=== PATIENT | female | born 1995 | race Caucasian/White ===

== ENCOUNTER 2017-04-05 21:40 | Emergency (ER) | payer MEDICAID ==
[~2017-04-05] VITALS: Ht 157.5 cm; Wt 74.3 kg
[~2017-04-05 21:40] MED LIST: AZIT250T PO; CLIN-80 PO; CYCL-1 PO; DIAZ5TAB PO; GUAI120015 PO; HYDR-569 PO; IBUP-1986 PO; METH-360 PO; NITR100C PO; NO HOME MEDS; ONDA4TAB6 PO
[2017-04-05] MEDS ORDERED: NAPR-1144 PO (22:00)
[2017-04-05] MEDS ORDERED: CYCL-1 PO (22:00)
[2017-04-05 22:08] VITALS: BP 139/92
== END 2017-04-05 22:09 | disposition home or self-care (01) ==
LOC: ER 21:41
DX: M54.5 Low back pain (principal); G89.29 Other chronic pain; J45.909 Unspecified asthma, uncomplicated; D16.6 Benign neoplasm of vertebral column; F17.210 Nicotine dependence, cigarettes, uncomplicated; Z88.6 Allergy status to analgesic agent; Z79.899 Other long term (current) drug therapy; Z90.49 Acquired absence of other specified parts of digestive tract
CPT/HCPCS: 99283

== ENCOUNTER 2017-05-26 21:23 | Emergency (ER) | payer MEDICAID ==
[~2017-05-26] VITALS: Ht 157.5 cm; Wt 76.1 kg
[~2017-05-26 21:23] MED LIST changes: +NAPR-1144 PO
[2017-05-26 22:16] VITALS: BP 132/75
[2017-05-26] MEDS ORDERED: HYDR-569 PO (22:30)
== END 2017-05-26 22:30 | disposition home or self-care (01) ==
LOC: ER 21:24
DX: N64.4 Mastodynia (principal); N63.20 Unspecified lump in the left breast, unspecified quadrant; J45.909 Unspecified asthma, uncomplicated; G89.29 Other chronic pain; Z90.49 Acquired absence of other specified parts of digestive tract; Z98.890 Other specified postprocedural states; Z88.5 Allergy status to narcotic agent; Z79.899 Other long term (current) drug therapy
CPT/HCPCS: 99283

== ENCOUNTER 2018-03-22 19:57 | Emergency (ER) | payer MEDICAID ==
[~2018-03-22] VITALS: Ht 157.5 cm; Wt 58.2 kg
[~2018-03-22 19:57] MED LIST changes: -CLIN-80 PO; +CLIN300C85 PO; +HYDR-4383 PO; -HYDR-569 PO
[2018-03-22 20:05] VITALS: BP 123/76
[2018-03-22 20:53] LABS: ALANINE AMINOTRANSFERASE 23 U/L (12-78); ALBUMIN/GLOBULIN RATIO 0.7 (1.1-1.5); ALKALINE PHOSPHATASE 100 IU/L (46-116); ANION GAP 9 (8-16); ASPARTATE AMINO TRANSFERASE 11 U/L (10-37); BILIRUBIN,TOTAL 0.3 MG/DL (0.1-1.0); BLOOD UREA NITROGEN 6 MG/DL (7-18); BUN/CREATININE RATIO 9.2 (6.6-38.0); CALCIUM 8.7 MG/DL (8.5-10.1); CHLORIDE 100 MMOL/L (99-107); CREATININE 0.65 MG/DL (0.40-0.90); GLUCOSE 81 MG/DL (70-104); LIPASE 120 U/L (73-393); POTASSIUM 3.5 MMOL/L (3.5-5.1); SODIUM 141 MMOL/L (135-145); TOTAL CARBON DIOXIDE 31.8 MMOL/L (24-32); TOTAL PROTEIN 7.4 G/DL (6.4-8.2); eGFR > 90 ML/MIN
[2018-03-22 20:57] LABS: BASOPHILS % (AUTO) 0.2 % (0-1); EOSINOPHILS # (AUTO) 0.1 X10'3 (0-0.9); EOSINOPHILS % (AUTO) 2.3 % (0-6); HEMATOCRIT 36.2 % (35.0-45.0); HEMOGLOBIN 12.1 g/dl (12.0-16.0); LYMPHOCYTES # (AUTO) 1.3 X10'3 (1.1-4.8); LYMPHOCYTES % (AUTO) 28.6 % (21-51); MEAN CORPUSCULAR HEMOGLOBIN 29.7 PG (27.0-31.0); MEAN CORPUSCULAR HGB CONC 33.3 % (33.0-36.5); MEAN CORPUSCULAR VOLUME 89.2 FL (78-98); MEAN PLATELET VOLUME 7.9 FL (7.4-10.4); MONOCYTES # (AUTO) 0.3 X10'3 (0-0.9); MONOCYTES % (AUTO) 7.3 % (2-12); NEUTROPHILS # (AUTO) 2.9 X10'3 (1.8-7.7); NEUTROPHILS % (AUTO) 61.6 % (42-75); PLATELET COUNT 317 X10'3 (140-440); PROTHROMBIN TIME 10.2 SECONDS (9.0-12.0); RED BLOOD COUNT 4.06 X10'6 (4.20-5.60); RED CELL DISTRIBUTION WIDTH 12.6 % (11.5-14.5); WHITE BLOOD COUNT 4.6 X10'3 (4.5-11.0)
[2018-03-22 21:14] LABS: URINE HCG NEGATIVE (NEG)
[2018-03-22 21:24] LABS: CLARITY,URINE SLIGHTLY CLOUDY (Clear); COLOR,URINE YELLOW (Yellow); UA COLLECTION TYPE CLN CATCH MIDSTREAM
[2018-03-22 21:25] LABS: GLUCOSE, URINE NEGATIVE (Neg); KETONES,URINE NEGATIVE (Neg); LEUKOCYTE ESTERASE ,URINE LARGE (Neg); NITRITES, URINE NEGATIVE (Neg); OCCULT BLOOD,URINE TRACE-LYSED (Neg); PH,URINE 6.5 (4.8-8.0); PROTEIN,URINE NEGATIVE (Neg)
[2018-03-22 21:26] LABS: BACTERIA,URINE FEW /HPF (Neg); RBC,URINE 0-2 /HPF (0-2); SQUAMOUS EPITHELIAL CELL,UR FEW /LPF (FEW)
[2018-03-22 21:27] LABS: MUCUS STRANDS MODERATE /LPF (Neg); TRICHOMONAS,URINE FEW /HPF (NEGATIVE); WBC,URINE 30-50 /HPF (0-4)
[2018-03-22] MEDS ORDERED: azithromycin 250mg tablet PO ONE (21:30)
[2018-03-22] MEDS ORDERED: CefTRIAXone 1000mg IM Kit (w/lidocaine diluent) IM ONE (21:30)
[2018-03-22] MEDS ORDERED: NITR100C6 PO (22:04)
[2018-03-22] MEDS ORDERED: POLY17PO10 PO (22:04)
[2018-03-22] MEDS ORDERED: CIPR-230 PO (22:05)
== END 2018-03-24 21:30 | disposition home or self-care (01) ==
LOC: ER 19:57
DX: N39.0 Urinary tract infection, site not specified (principal); J45.909 Unspecified asthma, uncomplicated; G89.29 Other chronic pain; Z90.49 Acquired absence of other specified parts of digestive tract; Z98.890 Other specified postprocedural states; Z88.5 Allergy status to narcotic agent; Z79.2 Long term (current) use of antibiotics; Z79.899 Other long term (current) drug therapy
CPT/HCPCS: 36415; 74018; 80053; 81001; 81025; 83690; 85025; 85610; 87088; 96372; 99284; J0696

== ENCOUNTER 2019-06-16 11:07 | Emergency (ER) | payer MEDICAID ==
[~2019-06-16] VITALS: Ht 157.5 cm; Wt 56.4 kg
[~2019-06-16 11:07] MED LIST changes: +CLIN-97 PO; -CLIN300C85 PO; +NITR100C6 PO
[2019-06-16] MEDS ORDERED: ketorolac tromethamine 15mg/ml inj. IV ONE (11:15)
[2019-06-16] MEDS ORDERED: ondansetron/PF 4mg/2ml inj IV ONE (11:15)
[2019-06-16] MEDS ORDERED: normal saline 1000ML IV soln IVB ONE (11:15)
[2019-06-16] MEDS ORDERED: oxyCODONE/APAP 5-325mg tablet PO ONE (11:25)
[2019-06-16 11:29] LABS: BASOPHILS % (AUTO) 0.3 % (0-1); EOSINOPHILS % (AUTO) 0.3 % (0-6); HEMATOCRIT 40.5 % (35.0-45.0); HEMOGLOBIN 13.5 g/dl (12.0-16.0); LYMPHOCYTES # (AUTO) 1.3 X10'3 (1.1-4.8); LYMPHOCYTES % (AUTO) 17.7 % (21-51); MEAN CORPUSCULAR HEMOGLOBIN 28.9 PG (27.0-31.0); MEAN CORPUSCULAR HGB CONC 33.4 g/dL (33.0-36.5); MEAN CORPUSCULAR VOLUME 86.5 FL (78-98); MEAN PLATELET VOLUME 7.8 FL (7.4-10.4); MONOCYTES # (AUTO) 0.5 X10'3 (0-0.9); MONOCYTES % (AUTO) 6.6 % (2-12); NEUTROPHILS # (AUTO) 5.5 X10'3 (1.8-7.7); NEUTROPHILS % (AUTO) 75.1 % (42-75); PLATELET COUNT 317 X10'3 (140-440); RED BLOOD COUNT 4.68 X10'6 (4.20-5.60); RED CELL DISTRIBUTION WIDTH 14.6 % (11.5-14.5); WHITE BLOOD COUNT 7.3 X10'3 (4.5-11.0)
[2019-06-16 11:56] LABS: ALANINE AMINOTRANSFERASE 14 U/L (12-78); ALBUMIN 3.8 G/DL (3.4-5.0); ALBUMIN/GLOBULIN RATIO 0.9 (1.1-1.5); ALKALINE PHOSPHATASE 88 IU/L (46-116); ANION GAP 9 (8-16); ASPARTATE AMINO TRANSFERASE 17 U/L (10-37); BILIRUBIN,TOTAL 0.5 MG/DL (0.1-1.0); BLOOD UREA NITROGEN 9 MG/DL (7-18); BUN/CREATININE RATIO 9.9 (6.6-38.0); CALCIUM 9.4 MG/DL (8.5-10.1); CHLORIDE 105 MMOL/L (99-107); CREATININE 0.91 MG/DL (0.40-0.90); GLUCOSE 236 MG/DL (70-104); LIPASE 77 U/L (73-393); POTASSIUM 4.4 MMOL/L (3.5-5.1); SODIUM 140 MMOL/L (135-145); TOTAL CARBON DIOXIDE 25.9 MMOL/L (24-32); TOTAL PROTEIN 7.9 G/DL (6.4-8.2); eGFR 75 ML/MIN
[2019-06-16 12:16] LABS: URINE HCG NEGATIVE (NEG)
[2019-06-16 12:19] LABS: CLARITY,URINE CLOUDY (Clear); COLOR,URINE AMBER (Yellow); GLUCOSE, URINE 100 mg/dl (Neg); KETONES,URINE 40 mg/dl (Neg); LEUKOCYTE ESTERASE ,URINE SMALL (Neg); NITRITES, URINE NEGATIVE (Neg); OCCULT BLOOD,URINE LARGE (Neg); PROTEIN,URINE 30 mg/dl (Neg)
[2019-06-16 12:26] LABS: UA COLLECTION TYPE CLN CATCH MIDSTREAM
[2019-06-16 12:30] LABS: BACTERIA,URINE 4+ /HPF (Neg); MUCUS STRANDS MANY /LPF (Neg); RBC,URINE TNTC /HPF (0-2)
[2019-06-16 12:31] LABS: SQUAMOUS EPITHELIAL CELL,UR MANY /LPF (FEW)
[2019-06-16] MEDS ORDERED: DOCU-148 PO (13:15)
[2019-06-16] MEDS ORDERED: ONDA4TAB6 PO (13:15)
[2019-06-16] MEDS ORDERED: HYDR-3965 PO (13:15)
[2019-06-16] MEDS ORDERED: CEPH500C5 PO (14:00)
[2019-06-16 14:12] VITALS: BP 112/61
[2019-06-16 14:16] LABS: CLARITY,URINE CLEAR (Clear); COLOR,URINE STRAW (Yellow); GLUCOSE, URINE NEGATIVE (Neg); KETONES,URINE NEGATIVE (Neg); LEUKOCYTE ESTERASE ,URINE TRACE (Neg); NITRITES, URINE NEGATIVE (Neg); OCCULT BLOOD,URINE LARGE (Neg); PH,URINE 6.5 (4.8-8.0); PROTEIN,URINE NEGATIVE (Neg); UROBILINOGEN,URINE 0.2 E.U/dL (0.2-1.0)
[2019-06-16 14:17] LABS: UA COLLECTION TYPE CLN CATCH MIDSTREAM
[2019-06-16 14:22] LABS: SQUAMOUS EPITHELIAL CELL,UR FEW /LPF (FEW); TRANSITIONAL EPI CELLS,URINE FEW /HPF
[2019-06-16 14:24] LABS: BACTERIA,URINE FEW /HPF (Neg); MUCUS STRANDS NONE SEEN /LPF (Neg); RBC,URINE 50-100 /HPF (0-2); WBC,URINE 0-4 /HPF (0-4)
== END 2019-06-16 14:55 | disposition home or self-care (01) ==
LOC: ER 11:07
DX: N20.0 Calculus of kidney (principal); N39.0 Urinary tract infection, site not specified; R11.2 Nausea with vomiting, unspecified; J45.909 Unspecified asthma, uncomplicated; G89.29 Other chronic pain; F17.200 Nicotine dependence, unspecified, uncomplicated; Z59.0 Homelessness; Z90.49 Acquired absence of other specified parts of digestive tract; Z98.890 Other specified postprocedural states; Z88.5 Allergy status to narcotic agent
CPT/HCPCS: 36415; 76700; 80053; 81001; 81025; 83690; 85025; 87077; 87088; 87186; 96361; 96374; 96375; 99284; J1885; J2405; J7030

== ENCOUNTER 2021-05-25 09:39 | Emergency (ER) | payer MEDICAID ==
[~2021-05-25] VITALS: Ht 157.5 cm; Wt 55.0 kg
[2021-05-25 09:39] VITALS: BP 126/98
[~2021-05-25 09:39] MED LIST changes: +DOCU-148 PO
[2021-05-25] MEDS ORDERED: piperacillin/tazo 3.375gm/50ml 50 ML IV ONE (09:45)
[2021-05-25] MEDS ORDERED: normal saline 1000ML IV soln IV ONE (09:45)
[2021-05-25] MEDS ORDERED: vancomycin/NS 1 GM ADD-VANTAGE 250 ML IV ONE (09:45)
[2021-05-25 10:12] LABS: CLARITY,URINE CLEAR (Clear); COLOR,URINE YELLOW (Yellow); GLUCOSE, URINE NEGATIVE (Neg); KETONES,URINE NEGATIVE (Neg); LEUKOCYTE ESTERASE ,URINE NEGATIVE (Neg); NITRITES, URINE NEGATIVE (Neg); OCCULT BLOOD,URINE NEGATIVE (Neg); PH,URINE 6.5 (4.8-8.0); PROTEIN,URINE TRACE mg/dl (Neg); UROBILINOGEN,URINE 0.2 E.U/dL (0.2-1.0)
[2021-05-25 10:13] LABS: URINE HCG NEGATIVE (NEG)
[2021-05-25 10:23] LABS: BASOPHILS % (AUTO) 0.3 % (0-1); EOSINOPHILS % (AUTO) 0.9 % (0-6); HEMATOCRIT 38.8 % (35.0-45.0); HEMOGLOBIN 12.6 g/dl (12.0-16.0); LYMPHOCYTES # (AUTO) 0.9 X10'3 (1.1-4.8); LYMPHOCYTES % (AUTO) 18.8 % (21-51); MEAN CORPUSCULAR HEMOGLOBIN 26.3 PG (27.0-31.0); MEAN CORPUSCULAR HGB CONC 32.5 g/dL (33.0-36.5); MEAN CORPUSCULAR VOLUME 80.9 FL (78-98); MEAN PLATELET VOLUME 8.2 FL (7.4-10.4); MONOCYTES # (AUTO) 0.5 X10'3 (0-0.9); MONOCYTES % (AUTO) 10.5 % (2-12); NEUTROPHILS # (AUTO) 3.4 X10'3 (1.8-7.7); NEUTROPHILS % (AUTO) 69.5 % (42-75); PLATELET COUNT 358 X10'3 (140-440); RED BLOOD COUNT 4.79 X10'6 (4.20-5.60); RED CELL DISTRIBUTION WIDTH 16.1 % (11.5-14.5); WHITE BLOOD COUNT 4.9 X10'3 (4.5-11.0)
[2021-05-25 10:27] LABS: URINE AMPHETAMINE SCREEN NEGATIVE (Neg); URINE BARBITUATE SCREEN NEGATIVE (Neg); URINE BENZODIAZEPINES SCREEN NEGATIVE (Neg); URINE CANNABINOID SCREEN NEGATIVE (Neg); URINE COCAINE SCREEN NEGATIVE (Neg); URINE METHADONE SCREEN NEGATIVE (Neg); URINE OPIATE SCREEN NEGATIVE (Neg); URINE PHENCYCLIDINE SCREEN NEGATIVE (Neg)
[2021-05-25 10:37] LABS: ALANINE AMINOTRANSFERASE 28 U/L (12-78); ALBUMIN 3.7 G/DL (3.4-5.0); ALBUMIN/GLOBULIN RATIO 0.8 (1.1-1.5); ALKALINE PHOSPHATASE 101 IU/L (46-116); ANION GAP 9 (8-16); ASPARTATE AMINO TRANSFERASE 15 U/L (10-37); BILIRUBIN,TOTAL 0.2 MG/DL (0.1-1.0); BLOOD UREA NITROGEN 21 MG/DL (7-18); BUN/CREATININE RATIO 29.6 (6.6-38.0); CALCIUM 8.9 MG/DL (8.5-10.1); CHLORIDE 106 MMOL/L (99-107); CREATININE 0.71 MG/DL (0.40-0.90); GLUCOSE 97 MG/DL (70-104); POTASSIUM 4.4 MMOL/L (3.5-5.1); SODIUM 139 MMOL/L (135-145); TOTAL CARBON DIOXIDE 23.7 MMOL/L (24-32); TOTAL PROTEIN 8.1 G/DL (6.4-8.2); eGFR > 90 ML/MIN
[2021-05-25] MEDS ORDERED: NO HOME MEDS (10:50)
[2021-05-25 10:55] LABS: UA COLLECTION TYPE CLN CATCH MIDSTREAM
[2021-05-25 10:57] LABS: AMORPHOUS URATES 1+; BACTERIA,URINE NONE SEEN /HPF (Neg); MUCUS STRANDS FEW /LPF (Neg); RBC,URINE NONE SEEN /HPF (0-2); SQUAMOUS EPITHELIAL CELL,UR FEW /LPF (FEW); WBC,URINE 0-4 /HPF (0-4)
--- NOTE | 2021-05-25 11:00 | NUR ---
Pt stated that she wants to go home and does not want to be admitted. Malathi in to speak with pt.
[2021-05-25] MEDS ORDERED: SULF1TAB49 PO (11:07)
--- NOTE | 2021-05-25 11:10 | NUR ---
Pt signed the AMA form. IV d/c'd, catheter was intact. Ambulatory with a steady gait.
== END 2021-05-25 11:10 | disposition left against medical advice (07) ==
LOC: ER 09:39
DX: Z20.822 Contact with and (suspected) exposure to COVID-19 (principal); S63.612A Unspecified sprain of right middle finger, initial encounter; X58.XXXA Exposure to other specified factors, initial encounter; Y93.89 Activity, other specified; Y92.89 Other specified places as the place of occurrence of the external cause; Y99.8 Other external cause status
CPT/HCPCS: 36415; 73130; 80053; 80305; 81001; 81025; 84145; 85025; 87635; 96365; 96366; 96368; 99285; C9803; J2543; J3370; J7030

== ENCOUNTER 2024-02-26 18:52 | Emergency (ER) | payer MEDICAID ==
[~2024-02-26] VITALS: Ht 157.5 cm; Wt 78.8 kg
[2024-02-26 19:12] VITALS: TEMP 97.9
[2024-02-26 19:38] LABS: BASOPHILS % (AUTO) 0.3 % (0-1); EOSINOPHILS # (AUTO) 0.1 X10'3 (0-0.9); EOSINOPHILS % (AUTO) 0.8 % (0-6); HEMATOCRIT 38.1 % (35.0-45.0); HEMOGLOBIN 12.7 g/dl (12.0-16.0); LYMPHOCYTES # (AUTO) 1.7 X10'3 (1.1-4.8); MEAN CORPUSCULAR HEMOGLOBIN 28.7 PG (27.0-31.0); MEAN CORPUSCULAR HGB CONC 33.4 g/dL (33.0-36.5); MEAN CORPUSCULAR VOLUME 85.9 FL (78-98); MEAN PLATELET VOLUME 7.7 FL (7.4-10.4); MONOCYTES # (AUTO) 0.6 X10'3 (0-0.9); MONOCYTES % (AUTO) 7.3 % (2-12); NEUTROPHILS # (AUTO) 5.6 X10'3 (1.8-7.7); NEUTROPHILS % (AUTO) 70.6 % (42-75); PLATELET COUNT 309 X10'3 (140-440); RED BLOOD COUNT 4.44 X10'6 (4.20-5.60); RED CELL DISTRIBUTION WIDTH 13.8 % (11.5-14.5)
[2024-02-26 19:51] LABS: ALANINE AMINOTRANSFERASE 14 U/L (12-78); ALBUMIN 4.2 G/DL (3.4-5.0); ALBUMIN/GLOBULIN RATIO 1.1 (1.1-1.5); ALKALINE PHOSPHATASE 80 IU/L (46-116); ANION GAP 7 (8-16); ASPARTATE AMINO TRANSFERASE 11 U/L (10-37); BILIRUBIN,TOTAL 0.3 MG/DL (0.1-1.0); BLOOD UREA NITROGEN 11 MG/DL (7-18); BUN/CREATININE RATIO 13.6 (10.0-20.0); CALCIUM 8.8 MG/DL (8.5-10.1); CHLORIDE 105 MMOL/L (99-107); CREATININE 0.81 MG/DL (0.40-0.90); GLUCOSE 96 MG/DL (70-104); LIPASE 38 U/L (16-77); POTASSIUM 3.8 MMOL/L (3.5-5.1); SODIUM 144 MMOL/L (135-145); TOTAL PROTEIN 8.1 G/DL (6.4-8.2); eCRCL 80 ML/MIN; eGFR 83 ML/MIN
[2024-02-26 20:19] LABS: BILIRUBIN,URINE NEGATIVE (Neg); CLARITY,URINE CLOUDY (Clear); COLOR,URINE YELLOW (Yellow); GLUCOSE, URINE NEGATIVE (Neg); KETONES,URINE NEGATIVE (Neg); LEUKOCYTE ESTERASE ,URINE NEGATIVE (Neg); NITRITES, URINE NEGATIVE (Neg); OCCULT BLOOD,URINE NEGATIVE (Neg); PH,URINE 7.5 (4.8-8.0); PROTEIN,URINE NEGATIVE (Neg); URINE HCG NEGATIVE (NEG); UROBILINOGEN,URINE 0.2 E.U/dL (0.2-1.0)
[2024-02-26 20:22] LABS: UA COLLECTION TYPE CLN CATCH MIDSTREAM
[2024-02-26 20:24] LABS: AMORPHOUS PHOSPHATES 2+; BACTERIA,URINE FEW /HPF (Neg); RBC,URINE NONE SEEN /HPF (0-2); SQUAMOUS EPITHELIAL CELL,UR FEW /LPF (FEW); WBC,URINE 0-4 /HPF (0-4)
[2024-02-26 21:45] VITALS: BP 114/74; PULSE 78; O2SAT 98
[2024-02-26] MEDS: dicyclomine 10mg/ml 2ml ampule IM ONE (22:07)
[2024-02-26] MEDS ORDERED: DICY-19 PO (22:45)
[2024-02-26 22:52] VITALS: RESP 16
== END 2024-02-26 22:52 | disposition home or self-care (01) ==
LOC: ER 18:53
DX: R10.9 Unspecified abdominal pain (principal); R11.0 Nausea; R19.7 Diarrhea, unspecified; J45.909 Unspecified asthma, uncomplicated; Z88.1 Allergy status to other antibiotic agents; Z88.5 Allergy status to narcotic agent; Z88.6 Allergy status to analgesic agent; Z88.8 Allergy status to other drugs, medicaments and biological substances; Z87.440 Personal history of urinary (tract) infections; Z90.49 Acquired absence of other specified parts of digestive tract
CPT/HCPCS: 36415; 80053; 81001; 81025; 83690; 85025; 96372; 99283; J0500

== ENCOUNTER 2024-07-16 20:45 | Emergency (ER) | payer MEDICAID ==
[~2024-07-16] VITALS: Ht 157.5 cm; Wt 69.7 kg
[~2024-07-16 20:45] MED LIST changes: +DICY-19 PO
[2024-07-16 20:47] VITALS: BP 144/56; TEMP 96.5
[2024-07-16 21:10] LABS: BASOPHILS % (AUTO) 0.4 % (0-1); EOSINOPHILS # (AUTO) 0.4 X10'3 (0-0.9); EOSINOPHILS % (AUTO) 4.3 % (0-6); HEMATOCRIT 38.6 % (35.0-45.0); HEMOGLOBIN 12.8 g/dl (12.0-16.0); LYMPHOCYTES # (AUTO) 2.3 X10'3 (1.1-4.8); LYMPHOCYTES % (AUTO) 25.6 % (21-51); MEAN CORPUSCULAR HEMOGLOBIN 28.4 PG (27.0-31.0); MEAN CORPUSCULAR HGB CONC 33.3 g/dL (33.0-36.5); MEAN CORPUSCULAR VOLUME 85.3 FL (78-98); MEAN PLATELET VOLUME 7.9 FL (7.4-10.4); MONOCYTES # (AUTO) 0.6 X10'3 (0-0.9); MONOCYTES % (AUTO) 6.2 % (2-12); NEUTROPHILS # (AUTO) 5.7 X10'3 (1.8-7.7); NEUTROPHILS % (AUTO) 63.5 % (42-75); PLATELET COUNT 333 X10'3 (140-440); RED BLOOD COUNT 4.52 X10'6 (4.20-5.60); RED CELL DISTRIBUTION WIDTH 14.1 % (11.5-14.5)
--- NOTE | 2024-07-16 21:25 | Physician Documentation ---
History of Present Illness ~ Chief Complaint: Shortness of Breath Stated Complaint: DIFFICULTY BREATHING Time Seen by MD: 20:54 Primary Medical Doctor: IAIN RAND 28-year-old female as the ED after developing a cough and shortness of breath over the last week. Denies any history of asthma states her cough has worsened. Denies any recent fevers. States she works at the [employer] in his exposed to many illnesses. 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 Also had spinal surgery. Medication Reconciliation Allergies: Coded Allergies: morphine (Verified Allergy, Unknown, 07/16/24) Hives, itching. Scheduled Azithromycin (Zithromax), 1 DOSPAK PO UD Clindamycin HCL* (Clindamycin HCL*), 1 CAP PO Q6H Cyclobenzaprine* (Cyclobenzaprine*), 1 TAB PO TID Docusate Sodium (Colace), 1 CAP PO Q12H Guaifenesin (Mucinex), 1 TABLET PO BID Hydrocodone/Acetaminophen ([place] 5-325 Tablet), 1 TAB PO Q12H PRN Hydrocodone/Acetaminophen ([place] 5-325 Tablet), 1 TAB PO Q12H PRN Methocarbamol (Robaxin-750), 1 TAB PO Q12H Naproxen Sodium (Naproxen Sodium), 1 TAB PO Q12H Nitrofurantoin Macrocrystal (Nitrofurantoin), 1 CAP PO BID Nitrofurantoin Monohyd/M-Cryst (Macrobid 100 mg Capsule), 1 CAP PO Q12H Ondansetron Hcl (Zofran), 1 TABLET PO Q6H Ondansetron Hcl (Zofran), 1 TAB PO Q8H Scheduled PRN Cyclobenzaprine* (Cyclobenzaprine*), 1 TABLET PO Q8H PRN for muscle spasms Cyclobenzaprine* (Cyclobenzaprine*), 1 TABLET PO Q8H PRN for muscle spasms Diazepam (Valium), 1 TABLET PO TID PRN for muscle spasms Dicyclomine HCl (Dicyclomine HCl), 1 CAP PO Q6H PRN PRN for abdominal cramps Hydrocodone/Acetaminophen ([place] 5-325 Tablet), 1 TABLET PO TID PRN for pain Ibuprofen (Ibuprofen), 1 TABLET PO TID PRN for pain albuterol inhaler (Pro-Air Inhaler), 2 PUFFS INH Q4HPRN PRN for wheezing Miscellaneous Medications Home Med List (No Home Medications), (Reported) Home Med List (No Home Medications), (Reported) Past Medical History Past Medical History: Headache, Asthma, Kidney Stones, UTI, Chronic Pain, Chronic Back Pain, *CANCER* Past Surgical History: cholecystectomy, orthopedic surgeries Alcohol Use: None Drug Use: none Lives with: S/O Lives In: Homeless Occupation: employed Review of Systems All Other Systems at this time: Reviewed and Negative ROS As stated above in the HPI, otherwise all systems are reviewed and negative. Physical Exam Vital Signs: Temperature: 96.5, Source: Temporal, Heart Rate: 87, Respiratory Rate: 24, BP: 144/56, Pulse Oximetry: 98, Weight: 69.700 Physical Exam General: Alert, mild respiratory distress. Respiratory: wheeze bilaterally at the bases Chest: No accessory muscle use. Cardiovascular: Tachycardic rate and rhythm, no murmurs. Neurologic: Oriented x4. Psychiatric: Normal mood and affect. Skin: Normal color, warm and dry. No edema, no ecchymosis. Progress Results/Orders Results/Orders Orders - LEEROY PLUNKETT PERFORMANCE REPORTER Svn Treatment (07/16/24 ) Completed Orders - LEEROY PLUNKETT PERFORMANCE REPORTER Ipratropium/Albuterol Nebule (Ipratrop/A (07/16/24 21:25) Methylprednisolone Sod Succ (Solumedrol (07/16/24 22:00) Vital Signs 07/16/24 07/16/24 07/16/24 07/16/24 20:47 21:55 22:07 22:11 Temp 96.5 Pulse 87 69 77 Resp 24 18 18 B/P (MAP) 144/56 Pulse Ox 98 98 97 O2 Delivery Room Air* Room Air* O2 Flow Rate 0 0 FiO2 21 21 Laboratory Tests Test 07/16/24 20:50 07/16/24 21:00 Influenza Type A (Rapid) Negative Influenza Type B (Rapid) Negative SARS-CoV-2 Antigen (Rapid) Negative White Blood Count 9.0 Red Blood Count 4.52 Hemoglobin 12.8 Hematocrit 38.6 Mean Corpuscular Volume 85.3 Mean Corpuscular Hemoglobin 28.4 Mean Corpuscular Hemoglobin Concent 33.3 Red Cell Distribution Width 14.1 Platelet Count 333 Mean Platelet Volume 7.9 Neutrophils (%) (Auto) 63.5 Lymphocytes (%) (Auto) 25.6 Monocytes (%) (Auto) 6.2 Eosinophils (%) (Auto) 4.3 Basophils (%) (Auto) 0.4 Neutrophils # (Auto) 5.7 Lymphocytes # (Auto) 2.3 Monocytes # (Auto) 0.6 Eosinophils # (Auto) 0.4 Basophils # (Auto) 0.0 CBC Comment Sodium Level 140 Potassium Level 4.0 Chloride Level 103 Carbon Dioxide Level 30.0 Anion Gap 7 L Blood Urea Nitrogen 17 Creatinine 0.70 Estimated GFR/1.73 m2 > 90 BUN/Creatinine Ratio 24.3 H Glucose Level 95 Lactic Acid Level 0.6 Calcium Level 9.3 Pro-B-Type Natriuretic Peptide 33 Albumin 4.0 Chemistry Comments Microbiology Date/Time Source Procedure Growth Status 07/16/24 21:02 Blood Hand Right Blood Culture - Preliminary NEGATIVE (LESS THAN 24 HOURS) Resulted Medical Decision Making Findings Pt did initially present with bilateral lower lobe wheezes. I provided her with I ipratropium albuterol per hitting treatment. Also gave an injection of Solu-Medrol. Reported overall improved symptoms.. I am suspecting eithe for bacterial bronchitis. Stage of her symptoms I do not want to prescribe antibiotics. She did report overall improved symptoms and does not present with any acute emergencies at this time Differential Dx:Considerations: Include: anxiety, asthma, bronchitis, cardiogenic shock, CHF, COPD, dysrhythmia, hypertension, accelerated, hypertension, essential, hypertension, malignant, hyperventilation, hyponatremia, myocardial infarction, panic attack, pneumonia, pneumonitis, pneumothorax, PSVT, pulmonary embolism, respiratory distress, respiratory failure, sinusitis, upper resp. infection, other Departure Disposition: HOME / SELF CARE / HOMELESS Impression: Primary Impression: Asthma Additional Impression: Acute upper respiratory infection Discharge Instructions: Asthma, Adult, [id number] Referrals: NO PRIMARY CARE PROVIDER (PCP) Prescriptions albuterol inhaler (Pro-Air Inhaler) 8.5 Gm Inhaler 2 PUFFS INH Q4HPRN PRN for wheezing for 30 Days, #18 GM Prov: LEEROY PLUNKETT NP 07/16/24 Signature Scribe Signature: r Attestation: The note accurately reflects work and decisions made by me.Leeroy Plunkett - TIMI 07/16/24 21:25 LEEROY PLUNKETT NP Jul 16, 2024 21:25
[2024-07-16 21:31] LABS: ANION GAP 7 (8-16); BLOOD UREA NITROGEN 17 MG/DL (7-18); BUN/CREATININE RATIO 24.3 (10.0-20.0); CALCIUM 9.3 MG/DL (8.5-10.1); CHLORIDE 103 MMOL/L (99-107); GLUCOSE 95 MG/DL (70-104); PRO BRAIN NATRIURETIC PEPTIDE 33 PG/ML (0-125); SODIUM 140 MMOL/L (135-145); eCRCL 93 ML/MIN; eGFR > 90 ML/MIN
[2024-07-16 22:07] VITALS: PULSE 69; RESP 18; O2SAT 98
[2024-07-16] MEDS: ipratropium/albuterol 3ml nebule NEB ONE (22:07)
[2024-07-16 22:11] VITALS: PULSE 77; RESP 18; O2SAT 97
[2024-07-16] MEDS: methylPREDNISolone sod succ 125mg/2ml vial IV ONE (22:30)
[2024-07-16] MEDS ORDERED: ALBU8HFA INH (22:31)
--- NOTE | 2024-07-16 23:04 | RADIOLOGY REPORT ---
Clinical History shortness of breath Comparison None Technique: single view chest Without Contrast LENCHO GARCIA, [id number] FINDINGS: Trachea is midline, heart size normal, cardiomediastinal silhouette unremarkable. There is no pneumonia or pulmonary vascular congestion, no pneumothorax, no evidence of pleural or pe ricardial effusion. There is an S-shaped scoliosis with spinal rods in place, no evidence of acute bone abnormality. IMPRESSION: 1. No evidence of acute cardiopulmonary disease. This report was electronically signed by Michael Almeida MD on 07/16/2024 11:02:19 PM.
== END 2024-07-16 22:36 | disposition home or self-care (01) ==
LOC: ER 20:46
DX: J45.909 Unspecified asthma, uncomplicated (principal); J06.9 Acute upper respiratory infection, unspecified; G89.29 Other chronic pain; M54.9 Dorsalgia, unspecified; Z90.49 Acquired absence of other specified parts of digestive tract; Z88.5 Allergy status to narcotic agent; Z79.899 Other long term (current) drug therapy; Z59.00 Homelessness unspecified; Z87.442 Personal history of urinary calculi; Z20.822 Contact with and (suspected) exposure to COVID-19
CPT/HCPCS: 36415; 71046; 80048; 83605; 83880; 85025; 87040; 87502; 87503; 87811; 94640; 96374; 99284; J2919; 94760; 99285

== ENCOUNTER 2024-08-07 13:56 | Emergency (ER) | payer MEDICAID ==
[~2024-08-07] VITALS: Ht 157.5 cm; Wt 66.8 kg
[~2024-08-07 13:56] MED LIST changes: +ALBU8HFA INH
[2024-08-07 13:58] VITALS: BP 107/70; PULSE 92; RESP 15; TEMP 97.9; O2SAT 99
== END 2024-08-07 17:43 | disposition left against medical advice (07) ==
LOC: ER 13:57
DX: J45.909 Unspecified asthma, uncomplicated (principal); Z53.21 Procedure and treatment not carried out due to patient leaving prior to being seen by health care provider; Z88.5 Allergy status to narcotic agent

== ENCOUNTER 2024-11-09 17:01 | Emergency (ER) | payer MEDICAID ==
[~2024-11-09] VITALS: Ht 157.5 cm; Wt 75.0 kg
[~2024-11-09 17:01] MED LIST changes: -ALBU8HFA INH; +CLIN-224 PO; -CLIN-97 PO
[2024-11-09 19:20] LABS: URINE HCG POSITIVE (NEG)
[2024-11-09 19:26] LABS: LEUKOCYTE ESTERASE ,URINE NEGATIVE (Neg); NITRITES, URINE NEGATIVE (Neg); OCCULT BLOOD,URINE NEGATIVE (Neg)
[2024-11-09 19:45] LABS: UA COLLECTION TYPE CLN CATCH MIDSTREAM
--- NOTE | 2024-11-09 19:57 | Physician Documentation ---
History of Present Illness ~ Chief Complaint: Complications Stated Complaint: NAUSEA Time Seen by MD: 18:39 Primary Medical Doctor: IAIN RAND Patient is a 29-year-old female that presents to the emergency department for evaluation of positive tests at home. Patient reports that she took a test at home yesterday that was positive. Reports that she needs an official tests here in the emergency department so she can take to the clinic to establish care with an OBGYN. Patient reports mild nausea. No other significant past medical history reported and no other concerns at this time. Medication Reconciliation Allergies: Coded Allergies: morphine (Verified Allergy, Unknown, 11/09/24) Hives, itching. Scheduled Azithromycin (Zithromax), 1 DOSPAK PO UD Clindamycin HCL* (Clindamycin HCL*), 1 CAP PO Q6H Cyclobenzaprine* (Cyclobenzaprine*), 1 TAB PO TID Docusate Sodium (Colace), 1 CAP PO Q12H Guaifenesin (Mucinex), 1 TABLET PO BID Hydrocodone/Acetaminophen ([place] 5-325 Tablet), 1 TAB PO Q12H PRN Hydrocodone/Acetaminophen ([place] 5-325 Tablet), 1 TAB PO Q12H PRN Methocarbamol (Robaxin-750), 1 TAB PO Q12H Naproxen Sodium (Naproxen Sodium), 1 TAB PO Q12H Nitrofurantoin Macrocrystal (Nitrofurantoin), 1 CAP PO BID Nitrofurantoin Monohyd/M-Cryst (Macrobid 100 mg Capsule), 1 CAP PO Q12H Ondansetron Hcl (Zofran), 1 TABLET PO Q6H Ondansetron Hcl (Zofran), 1 TAB PO Q8H Scheduled PRN Cyclobenzaprine* (Cyclobenzaprine*), 1 TABLET PO Q8H PRN for muscle spasms Cyclobenzaprine* (Cyclobenzaprine*), 1 TABLET PO Q8H PRN for muscle spasms Diazepam (Valium), 1 TABLET PO TID PRN for muscle spasms Dicyclomine HCl (Dicyclomine HCl), 1 CAP PO Q6H PRN PRN for abdominal cramps Hydrocodone/Acetaminophen ([place] 5-325 Tablet), 1 TABLET PO TID PRN for pain Ibuprofen (Ibuprofen), 1 TABLET PO TID PRN for pain Miscellaneous Medications Home Med List (No Home Medications), (Reported) Home Med List (No Home Medications), (Reported) Past Medical History Past Medical History: Headache, Asthma, Kidney Stones, UTI, Chronic Pain, Chronic Back Pain, *CANCER* Past Surgical History: cholecystectomy, orthopedic surgeries Alcohol Use: None Drug Use: none Lives with: S/O Lives In: Homeless Occupation: employed Review of Systems ROS As stated above in the HPI, otherwise all systems are reviewed and negative. Physical Exam Physical Exam Vital Signs: Temperature: 96.8, Source: Temporal, Heart Rate: 108, Respiratory Rate: 18, BP: 135/80, Pulse Oximetry: 99, Weight: 75.000 Oxygen Flow Rate: 0 Physical Exam VITALS: Reviewed and as above. GENERAL: Alert, no apparent distress. HEENT: Normocephalic, atraumatic, PERRL, EOMI, dry mucosa, no erythema RESPIRATORY: Lungs clear, normal breath sounds, no respiratory distress. CHEST: No accessory muscle use, no retractions CV: Regular rate, rhythm, no edema, no murmur, No: JVD GI: Soft, non-tender, bowels sounds present, no rebound, guarding, or rigidity BACK: No CVA tenderness, or swelling MUSCULOSKELETAL No deformities, no edema SKIN: Warm and dry, no rash NEURO: Oriented x4, No motor or sensory deficit PSYCH: Normal mood and affect, no agitation Progress Results/Orders Results/Orders Completed Orders - JEANETTE TRAN WAIST FITTER Urinalysis, Cult If Indicated (11/09/24 18:58) Hcg, Ur Ql (11/09/24 18:58) Vital Signs 11/09/24 17:03 Temp 96.8 Pulse 108 Resp 18 B/P (MAP) 135/80 Pulse Ox 99 O2 Flow Rate 0 Laboratory Tests Test 11/09/24 19:05 Urine Specimen Description Cln catch midstream Urine Color Yellow Urine Clarity Clear Urine pH 6.0 Urine Specific [place] 1.025 Urine Protein Negative Urine Glucose (UA) Negative Urine Ketones Negative Urine Occult Blood Negative Urine Nitrite Negative Urine Bilirubin Negative Urine Urobilinogen 0.2 Urine Leukocyte Esterase Negative Urine Culture Indicated Not ind Volume Urine Centrifuged 10 ml Urine HCG, Qualitative Positive Urine Comment Medical Decision Making Findings Patient reported to the emergency department for confirmation of positive test. Patient reported that she needs a confirmation from the emergency department so she can establish care with an OBGYN. UA was collected hCG was performed no concern for UTI hCG is positive at this time. Patient will follow up with her primary care provider and establish care with an OBGYN. Patient reports mild nausea associated with . Return to the emergency department if she has any worsening or recurrent symptoms or any additional concerning symptoms present. Differential Dx:Considerations: Include: -complete, - incomplete, -inevitable, -missed, -threatened, Abruptio placentae, Active labor-term, Active labor-, Appendicitis, [place] contraction, Cystitis: Acute, Discomfort of , Ectopic , Ectopic preg.-ruptured, demise, Placenta previa, Pyelonephritis: Acute, Ruture of membranes, Third trimester bleeding, UTI, Vaginal bleeding, Vaginal delivery, Other Departure Disposition: HOME / SELF CARE / HOMELESS Impression: Primary Impression: Complication of Additional Impression: Encounter for confirmation of test result with physical examination Condition: Stable Discharge Instructions: ABCs of Additional Instructions: Patient reported to the emergency department for confirmation of positive test. Patient reported that she needs a confirmation from the emergency department so she can establish care with an OBGYN. UA was collected hCG was performed no concern for UTI hCG is positive at this time. Patient will follow up with her primary care provider and establish care with an OBGYN. Patient reports mild nausea associated with . Return to the emergency department if she has any worsening or recurrent symptoms or any additional concerning symptoms present. Referrals: NO PRIMARY CARE PROVIDER (PCP) Education Educated: Patient Educated regarding: diagnosis, treatment, need for follow up Signature Scribe Signature: A Attestation: Scribed for Jeanette Tran by YOVANY Mohan . 11/09/24 20:01 JEANETTE TARN Nov 09, 2024 19:57
[2024-11-09 20:06] VITALS: BP 134/78; PULSE 86; RESP 16; TEMP 98.4; O2SAT 98
== END 2024-11-09 20:08 | disposition home or self-care (01) ==
LOC: ER 17:02
DX: O26.91 Pregnancy related conditions, unspecified, first trimester (principal); R11.0 Nausea; J45.909 Unspecified asthma, uncomplicated; Z88.5 Allergy status to narcotic agent; Z90.49 Acquired absence of other specified parts of digestive tract; Z79.899 Other long term (current) drug therapy; Z87.442 Personal history of urinary calculi; Z59.00 Homelessness unspecified
CPT/HCPCS: 81003; 81025; 99283